=== PATIENT | male | born 1955 | race Caucasian/White ===

== ENCOUNTER 2022-08-31 06:26 | Day surgery (SDC) | payer MEDICARE, SELFPAY ==
[2022-06-03 09:19] VITALS: BMI 30.7
[2022-08-19 13:36] VITALS: BMI 30.4
--- NOTE | 2022-08-19 14:03 | PC.NURSE ---
PT STATES HE HAS HAD THE FLU SINCE 08/11/22. STILL UNDER THE WEATHER AND HAS A COUGH. PT WILL LET DR PEREZ KNOW IF HE ISNT FEELING BETTER A FEW DAYS PRIOR TO THE COLONOSCOPY
[2022-08-31 06:15] VITALS: BP 125/89; PULSE 80; RESP 18; TEMP 37.1; O2SAT 96
[2022-08-31] MEDS: LACTATED RINGERS 1,000 ML 150 ML IV CONT (06:50)
--- NOTE | 2022-08-31 07:31 | P.PNAN_ITS ---
Anes - Initial Pre Proc Eval Procedure: Operation Date: 08/31/22 07:30 Proposed Procedures p Screening Colonoscopy - Salvador Greenwood MD Date/Time: 08/31/22 07:31 Surgeon: Salvador Greenwood MD Pre Op Diagnosis: Neoplasm Screening Patient Data Age: 67 Gender: M Height: 1.65 m Weight: 82.3 kg Allergies Allergy/AdvReac Type Severity Reaction Status Date / Time No Known Allergies Allergy Mild Verified 08/31/22 06:38 Home Medications Medication Instructions Recorded Confirmed Type aspirin 325 mg tablet 325 mg PO DAILY #65 tabs 01/02/20 08/31/22 Rx nhxmqzqr-kin-uuchz acid 0.4 1 tablet PO DAILY 01/02/20 08/31/22 History mg-lycopene 300 mcg-lutein 250 mcg tablet (Centrum Silver) carvedilol 3.125 mg tablet 3.125 mg PO BID #180 tabs 06/05/22 08/31/22 Rx lisinopril 10 mg tablet 10 mg PO DAILY #90 tabs 06/05/22 08/31/22 Rx simvastatin 40 mg tablet 40 mg PO .COMPLEX #90 tabs 06/05/22 08/31/22 Rx Patient hx anesthesia problems: none Family hx anesthesia problems: none Results Review: All pre-operative results and documents have been reviewed as part of the pre- operative evaluation. [facility] Past Medical History Medical History CAD (coronary artery disease) HLD (hyperlipidemia) Hypertension Family History Family History Father Family history of pancreatic cancer Mother Family history of emphysema Social History Social History Smoking packs per day: 0.5 Smoking cigarettes per day: 10.0 Years smoked: 40 Smoking pack-years: 20.00 Smoking status: Current every day smoker Tobacco type: cigarettes Alcohol intake: current Drinks per week: 21 Alcohol use details: 3-4 BEERS PER DAY Substance use: current Substance use type: marijuana Last use: THIS WEEK Living arrangements: with family Spiritual care concerns: No Anes - Eval Final PreProcedure Day of Procedure 08/31/22 07:31 Patient weight: obese Heart: regular rate and rhythm Lungs: decreased breath sounds Airway: Mallampati scale class II Neurological: alert and oriented Last oral intake: >/= 8 hours ASA classification: III Emergent: no Anesthetic plan: proceed Anesthesia type and monitoring: general GIVS and standard monitoring Results Review: All pre-operative results and documents have been reviewed as part of the pre- operative evaluation. Informed Consent: The patient's anesthetic plan and its attendant risks and benefits were discussed with the patient/family/POA. Questions were solicited and answers provided to the satisfaction of the patient/family/POA.
--- NOTE | 2022-08-31 07:31 | PM.HPGS ---
History of Present Illness History of Present Illness Consent: Risks, benefits, and alternatives have been discussed and questions answered. Patient agrees to proceed with procedure. Chief complaint: Neoplasm Screening Narrative: Vu Batres is a 67 year old male here for screening colonoscopy, last one in 2007 Review of Systems Constitutional: Constitutional: Denies headache(s) and Denies weakness Eyes: Eyes: Denies blurry vision ENT: Reports Normal hearing present, Denies headache(s) and Denies neck pain Cardiovascular: Cardiovascular: Denies chest pain and Denies dyspnea Respiratory: Respiratory: Denies dyspnea Gastrointestinal: Gastrointestinal: Reports no additional gastrointestinal complaints Genitourinary: Genitourinary: Denies dysuria Musculoskeletal: Musculoskeletal: Denies neck pain Integumentary/Breasts: Skin/Breast: Denies dry skin Neurologic: Reports Normal hearing present, Denies headache(s) and Denies weakness Psychiatric: Psychiatric: Denies anxiety Endocrine: Endocrine: Denies change in body appearance Hematologic/Lymphatic: Hematologic/Lymphatic: Denies easy bleeding Allergic/Immunologic: Allergic/Immunologic: Denies urticaria PMFSH Past Medical History Medical History CAD (coronary artery disease) HLD (hyperlipidemia) Hypertension Family History Family History Father Family history of pancreatic cancer Mother Family history of emphysema Social History Social History Smoking packs per day: 0.5 Smoking cigarettes per day: 10.0 Years smoked: 40 Smoking pack-years: 20.00 Smoking status: Current every day smoker Tobacco type: cigarettes Alcohol intake: current Drinks per week: 21 Alcohol use details: 3-4 BEERS PER DAY Substance use: current Substance use type: marijuana Last use: THIS WEEK Living arrangements: with family Spiritual care concerns: No Meds Home Medications and Allergies Home Medications Medication Instructions Recorded Confirmed Type aspirin 325 mg tablet 325 mg PO DAILY #65 tabs 01/02/20 08/31/22 Rx hekmpple-oui-dmafx acid 0.4 1 tablet PO DAILY 01/02/20 08/31/22 History mg-lycopene 300 mcg-lutein 250 mcg tablet (Centrum Silver) carvedilol 3.125 mg tablet 3.125 mg PO BID #180 tabs 06/05/22 08/31/22 Rx lisinopril 10 mg tablet 10 mg PO DAILY #90 tabs 06/05/22 08/31/22 Rx simvastatin 40 mg tablet 40 mg PO .COMPLEX #90 tabs 06/05/22 08/31/22 Rx Allergies Allergy/AdvReac Type Severity Reaction Status Date / Time No Known Allergies Allergy Mild Verified 08/31/22 06:38 Exam Const: General: comfortable and no acute distress HENMT: Face/Nose/Sinus: Normal nares present Eyes: General: appearance normal, both eyes and all related structures Neck: Neck: no JVD Resp: Auscultation: clear to auscultation bilaterally Cardio: Rate: regular rate Rhythm: regular rhythm GI: Inspection: non-distended GI Palp: Yes Soft to palpation Skin: General skin exam: normal color Neuro: General: gait normal Speech: normal speech Extrem: General: normal to inspection Psych: Mental Status: mental status grossly normal Assessment and Plan Assessment and plan (1) Colon cancer screening: Code(s): Z12.11 - Encounter for screening for malignant neoplasm of colon Status: Acute Assessment and Plan: colonoscopy
[2022-08-31 07:47] VITALS: BP 91/65; PULSE 85; RESP 20; O2SAT 97
[2022-08-31 07:57] VITALS: BP 109/80; PULSE 77; RESP 20; O2SAT 99
[2022-08-31 08:07] VITALS: BP 123/79; PULSE 74; RESP 20; O2SAT 100
--- NOTE | 2022-08-31 09:59 | WPDANESPN ---
Anes - Prog Note Post-Op Date/Time: 08/31/22 09:59 Cardiovascular status: normal Respiratory status: normal Airway patency: baseline Mental status: baseline Post-Op hydration status: normal Vital Signs: Last Vital Signs Temp 37.1 C 08/31/22 06:15 Pulse 74 08/31/22 08:07 Resp 20 08/31/22 08:07 BP 123/79 08/31/22 08:07 Pulse Ox 100 08/31/22 08:07 O2 Del Method Room Air 08/31/22 08:07 Pain Score (VAS): 0 I/O: Intake & Output 08/30/22 08/31/22 08/31/22 23:59 07:59 15:59 Intake Total 300 50 Balance 300 50 Patient Feedback: Patient satisfied with anesthetic care.
== END 2022-08-31 08:23 | disposition home or self-care (01) ==
PROVIDERS: PCP Emergency Medicine; Visit Provider Internal Medicine Gastroenterology
PROC: 0DJD8ZZ Inspection of Lower Intestinal Tract, Via Natural or Artificial Opening Endoscopic (ICD-10-PCS; CPT 45378; principal; 2022-08-31 07:30)
DX: Z12.11 Encounter for screening for malignant neoplasm of colon (principal)
CPT/HCPCS: 45385

== ENCOUNTER 2022-08-31 09:00 | Outpatient (NON) | payer MEDICARE, SELFPAY | END 2022-08-31 09:01 | disposition home or self-care (01) | PROVIDERS: PCP Emergency Medicine; Visit Provider Internal Medicine Gastroenterology | DX: Z12.11 Encounter for screening for malignant neoplasm of colon (principal) | CPT/HCPCS: 88305 ==